=== PATIENT | male | born 1955 | race Caucasian/White ===

== ENCOUNTER → 2018-08-23 | Outpatient (CLI) | payer SELFPAY ==
--- NOTE | 2018-08-23 15:30 | PCVCIMAG ---
APPROVED REPORT Study performed: 08/23/2018 15:01:27 EXAM: Comprehensive 2D, Doppler, and color-flow Echocardiogram Patient Location: Echo lab Status: routine BSA: 2.38 HR: 75 bpmBP: 138/70 mmHg Rhythm: NSR Other Information Study Quality: Adequate Risk Factors: Cardiac Risk Factors: HTN, DM, Hyperlipidemia 2D Dimensions IVSd: 12.02 (7-11mm) LVDd: 47.44 mm PWd: 11.84 (7-11mm)Ascending Ao: 31.47 (22-36mm) LVDs: 30.99 (25-40mm) Left Atrium: 42.51 (27-40mm) Aortic Root: 30.70 mm LV Single Plane 4CH: 48.27 % LV Single Plane 2CH: 56.71 % Biplane EF: 53.2 % Volumes Left Atrial Volume (Systole) Single Plane 4CH: 61.44 mLSingle Plane 2CH: 75.85 mL LA ESV Index: 29.00 mL/m2 Aortic Valve AoV Peak Wood.: 1.37 m/s AO Peak Gr.: 7.48 mmHgLVOT Max P.44 mmHg LVOT Max V: 0.93 m/s Mitral Valve E/A Ratio: 1.9 MV Decel. Time: 209.96 ms MV E Max Wood.: 0.98 m/s MV A Wood.: 0.52 m/s IVRT: 100.35 ms Pulmonary Valve PV Peak Wood.: 1.03 m/sPV Peak Gr.: 4.27 mmHg Pulmonary Vein P Vein S: 0.36 m/sP Vein A: 0.33 m/s P Vein D: 0.45 m/sP Vein A Dur.: 134.9 msec P Vein S/D Ratio: 0.80 Tricuspid Valve TR Peak Wood.: 3.01 m/s TR Peak Gr.: 36.26 mmHg TV Vmax: 0.68 m/s Left Ventricle The left ventricle is normal size. There is normal LV segmental wall motion. Mild concentric left ventricular hypertrophy. Left ventricular systolic function is normal. The left ventricular ejection fraction is within the normal range. LVEF is 55%. Grade I - abnormal relaxation pattern. Right Ventricle The right ventricle is normal size. The right ventricular systolic function is normal. Atria The left atrium size is normal. The right atrium size is normal. Aortic Valve The aortic valve is normal in structure. No aortic regurgitation is present. There is no aortic valvular stenosis. Mitral Valve The mitral valve is normal in structure. There is no mitral valve regurgitation noted. No evidence of mitral valve stenosis. Tricuspid Valve The tricuspid valve is normal in structure. Mild tricuspid regurgitation with PAP of 43 mmHg. Pulmonic Valve The pulmonary valve is normal in structure. Trace pulmonic regurgitation. Great Vessels The aortic root is normal in size. IVC is normal in size and collapses >50% with inspiration. Pericardium There is no pericardial effusion. There is no pleural effusion. <Conclusion> The left ventricle is normal size. Mild concentric left ventricular hypertrophy. LVEF is 55%. Grade I - abnormal relaxation pattern. The right ventricle is normal size. The left atrium size is normal. The aortic valve is normal in structure. There is no mitral valve regurgitation noted. Mild tricuspid regurgitation with PAP of 43 mmHg. The aortic root is normal in size. There is no pericardial effusion. There is no pleural effusion.
== END | disposition home or self-care (01) ==
LOC: PCVCIMAG 13:25
PROVIDERS: ATTEND Internal Medicine Nephrology
DX: I70.1 Atherosclerosis of renal artery (principal); E11.9 Type 2 diabetes mellitus without complications; I10 Essential (primary) hypertension
CPT/HCPCS: 93306